=== PATIENT | male | born 1995 | race Caucasian/White ===

== ENCOUNTER 2023-05-03 17:23 | Emergency (ER) | payer SELFPAY ==
[2023-05-03 17:27] VITALS: BP 178/102; PULSE 95; RESP 20; TEMP 36.3; O2SAT 98; BMI 48.7
[2023-05-03] MEDS: FLUORESCEIN SODIUM 1 MG STRIP OP (18:08)
[2023-05-03] MEDS: TETRACAINE HCL 0.5% OP SOL 80 DROP/4 ML BOTTLE OP (18:09)
--- NOTE | 2023-05-03 18:13 | ED_ITS ---
HPI - Eye Problem General Chief complaint: Eye Problems Stated complaint: something in eye Time Seen by Provider: 05/03/23 17:53 Source: patient Mode of arrival: walk-in Limitations: no limitations History of Present Illness HPI Narrative: this patient's here for pain or discomfort in his right eye. His left eye is asymptomatic. He has a lot of tearing in his right eye it's extremely light sensitive and its irritated. He does not have any history that was suggestive foreign body. He said he woke up this past Wednesday morning with it. He went to work today but since getting worse. He does not wear contact lenses. He has no other connective tissue diseases or symptoms such as fever muscle aches and pains joint pain urethral drainage or discharge or lesions in his oral cavity. He actually is quite healthy. His slight runny nose but no upper respirations symptoms. Related Data Home Medications Medication Instructions Recorded Confirmed No Known Home Medications 05/03/23 05/03/23 Allergies Allergy/AdvReac Type Severity Reaction Status Date / Time No Known Drug Allergies Allergy Verified 05/03/23 17:30 Exam Narrative Exam Narrative: vital signs are stable. He is pleasant is here with his . Neck is soft and supple. Craniofacial structures show substantial clear lacrimation from his right eye than left eye is normal. His conjunctiva and sclera is definitely injected on the right eye. Gross inspection does not show any foreign bodies. Slit lamp examination was done after tetracaine drops. It should be noted that the tetracaine drops relieved all of his discomfort. Fluorescein staining was then done and at the 5 o'clock position there is two small areas of uptake of fluorescein stain consistent with small abrasions. He does have some perilimbal injection of vessels. Constitutional Vital Signs, click to edit/add: Last Vital Signs Temp 97.4 F L 05/03/23 17:27 Pulse 95 H 05/03/23 17:27 Resp 20 05/03/23 17:27 BP 178/102 H 05/03/23 17:27 Pulse Ox 98 05/03/23 17:27 O2 Del Method Room Air 05/03/23 17:27 Course Vital Signs Vital signs: Vital Signs Temperature 97.4 F L 05/03/23 17:27 Pulse Rate 95 H 05/03/23 17:27 Respiratory Rate 20 05/03/23 17:27 Blood Pressure 178/102 H 05/03/23 17:27 Pulse Oximetry 98 05/03/23 17:27 Oxygen Delivery Method Room Air 05/03/23 17:27 Temperature 97.4 F L 05/03/23 17:27 Pulse Rate 95 H 05/03/23 17:27 Respiratory Rate 20 05/03/23 17:27 Blood Pressure 178/102 H 05/03/23 17:27 Pulse Oximetry 98 05/03/23 17:27 Oxygen Delivery Method Room Air 05/03/23 17:27 MDM - Eye Problem MDM Narrative Medical decision making narrative: patient presents with small corneal abrasions last Wednesday morning. No evidence of foreign body. Pain relief was good with tetracaine drops. We'll place him on Voltaren and a pupillary dilator. If he doesn't have complete improvement of symptoms on to follow-up with Dr. Morin vice principal here in [facility]. He is to avoid bright lights TV and reading. She apply cold compresses to the area. Discharge Plan Discharge Chief Complaint: Eye Problems Clinical Impression: Acute iritis, Corneal abrasion Patient Disposition: Home, Self-Care Time of Disposition Decision: 18:16 Prescriptions / Home Meds: No Action No Known Home Medications Additional Instructions: Voltaren drops Stand Alone Forms: Portal Instructions Referrals: Physician,Non-Staff, MD [Primary Care Provider] - 1 week
[2023-05-03] MEDS: ATROPINE SULFATE OP (18:36)
[2023-05-03 18:38] VITALS: BP 160/90
== END 2023-05-03 18:40 | disposition home or self-care (01) ==
PROVIDERS: Emergency Provider Emergency Medicine Emergency Medical Services
DX: H20.00 Unspecified acute and subacute iridocyclitis (principal); S05.01XA Injury of conjunctiva and corneal abrasion without foreign body, right eye, 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; X58.XXXA Exposure to other specified factors, 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
CPT/HCPCS: 99283

== ENCOUNTER 2023-10-12 02:14 | Emergency (ER) | payer SELFPAY ==
[2023-10-12 02:21] VITALS: BP 168/99; PULSE 90; RESP 16; TEMP 36.5; O2SAT 95; BMI 42.6
--- NOTE | 2023-10-12 02:38 | ED.GIBLEED1 ---
HPI - GI Bleed General Chief complaint: GI Bleed Stated complaint: constipation rectal bleeding Time Seen by Provider: 10/12/23 02:34 Source: patient Mode of arrival: walk-in Limitations: no limitations History of Present Illness HPI Narrative: constipation. left BM 2 days ago. was straining tonight and passed some blood. No abdominal pain or nausea. no known hemorrhoids Related Data Home Medications ?Medication ?Instructions ?Recorded ?Confirmed omeprazole magnesium 2.5 mg oral 10 mg PO DAILY 10/12/23 10/12/23 suspension,delayed release (Prilosec) Allergies Allergy/AdvReac Type Severity Reaction Status Date / Time No Known Drug Allergies Allergy Verified 10/12/23 02:24 Review of Systems ROS Status of ROS 10 or more systems reviewed and unremarkable except as noted in history and below Exam Constitutional Vital Signs, click to edit/add: Last Vital Signs Temp 97.7 F 10/12/23 02:21 Pulse 90 10/12/23 02:21 Resp 16 10/12/23 02:21 BP 168/99 H 10/12/23 02:21 Pulse Ox 95 10/12/23 02:21 O2 Del Method Room Air 10/12/23 02:21 Common normals: no apparent distress, average body habitus, oriented x3, no limitations, healthy appearing, alert and well nourished [facility] Common normals: normocephalic and head/scalp atraumatic Respiratory Common normals: normal respiratory effort, no retractions, no use of accessory muscles and clear to auscultation bilaterally Cardio Common normals: regular rate, regular rhythm, S1 normal heart sound and S2 normal heart sound GI Common normals: Normal to inspection, nondistended, normoactive bowel sounds present and soft to palpation Other: rectal . no hemorrhoids. digital exam with soreness of anal verge but no swelling. stool noted at tip of finger. Extremity Common normals: normal to inspection and full ROM Neuro Common normals: oriented x3, CN's II-XII intact bilaterally, moves all extremities and no focal motor deficits Psych Appearance: grossly normal Course Vital Signs Vital signs: Vital Signs Temperature 97.7 F 10/12/23 02:21 Pulse Rate 90 10/12/23 02:21 Respiratory Rate 16 10/12/23 02:21 Blood Pressure 168/99 H 10/12/23 02:21 Pulse Oximetry 95 03/26/24 02:21 Oxygen Delivery Method Room Air 10/12/23 02:21 Temperature 97.7 F 10/12/23 02:21 Pulse Rate 90 10/12/23 02:21 Respiratory Rate 16 10/12/23 02:21 Blood Pressure 168/99 H 10/12/23 02:21 Pulse Oximetry 95 10/12/23 02:21 Oxygen Delivery Method Room Air 10/12/23 02:21 MDM - GI Bleed MDM Narrative Medical decision making narrative: patient with constipation. bleeding with straining. CBC normal . successful enema. discharged home and advised to use daily stool softner or fiber Lab Data Labs: Lab Results 10/12/23 Range/Units 02:50 WBC 6.4 (4.0-11.0) 10^3/uL RBC 5.07 (4.70-6.10) 10^6/uL Hgb 14.3 (14.0-18.0) g/dL Hct 43.2 (42.0-54.0) % MCV 85.2 (80.0-94.0) fL MCH 28.2 (25.9-34.0) pg MCHC 33.1 (29.9-35.2) g/dL RDW 13.4 (11.0-15.0) % Plt Count 232 (150-450) 10^3/uL MPV 11.4 (9.5-13.5) fL Neut % (Auto) 54.3 (43.0-75.0) % Lymph % (Auto) 34.0 (20.5-60.0) % Ogle % (Auto) 8.8 (1.7-12.0) % Eos % (Auto) 1.7 (0.9-7.0) % Baso % (Auto) 0.6 (0.2-2.0) % Neut # (Auto) 3.5 (1.4-6.5) 10^3/uL Lymph # (Auto) 2.2 (1.2-3.8) 10^3/uL Ogle # (Auto) 0.6 (0.3-0.8) 10^3/uL Eos # (Auto) 0.1 (0.0-0.7) 10^3/uL Baso # (Auto) 0.0 (0.0-0.1) 10^3/uL Abs Immat Gran (auto) 0.04 H (0.00-0.03) 10^3/uL Imm/Tot Granulo (auto) 0.6 H (0.0-0.5) % Sodium 128 L (136-145) mmol/L Potassium 3.6 (3.5-5.1) mmol/L Chloride 92 L (98-107) mmol/L Carbon Dioxide 19.5 L (21.0-32.0) mmol/L Anion Gap 20.1 BUN 15.0 (7.0-18.0) mg/dL Creatinine 0.80 (0.70-1.30) mg/dL Est GFR ( Amer) >60 (>=60) Est GFR (Non-Af Amer) >60 (>=60) BUN/Creatinine Ratio 18.8 Glucose 407 H (74-106) mg/dL Calcium 8.0 L (8.5-10.1) mg/dL Imaging Data Chest x-ray: Radiologist's impression: ITS Impressions Abdomen X-Ray 10/12/23 02:39 IMPRESSION: Normal bowel gas pattern with nonspecific colonic stool retention. Correlate for constipation. Electronically authenticated by: NIKOLAI WELCH Date: 10/12/2023 03:45 Discharge Plan Discharge Stand Alone Forms: Portal Instructions Chief Complaint: GI Bleed Clinical Impression: Rectal bleed, Constipation Patient Disposition: Home, Self-Care Prescriptions / Home Meds: No Action Prilosec 2.5 mg susp,delayed release for recon 10 mg PO DAILY Print Language: Danish Instructions: Constipation (ED), Rectal Bleeding (ED) Referrals: Physician,Non-Staff, MD [Primary Care Provider] - 1 week
--- NOTE | 2023-10-12 02:39 | XR_ITS ---
The [address] [address] Patient Name: FRED BAZZI MRN: [id number] date: 1995 Sex: M Assigned Patient Location: ER Current Patient Location: ER Accession/Order Number: [id number] Exam Date: 10/12/2023 02:57 Report Date: 10/12/2023 03:45 At the request of: ERLINDA POWER Procedure: XR abdomen min 2V EXAM: XR abdomen min 2V HISTORY: constipation COMPARISON: None. TECHNIQUE: Multiple supine radiographs of abdomen and pelvis. 4 films. FINDINGS: Included lung bases are clear. No organomegaly. No opaque calculi in the abdomen or pelvis. Normal bowel gas pattern with air and stool scattered throughout large bowel from cecum to rectosigmoid. [id number] stool retention. No distended small bowel loops. Normal renal and psoas shadows. Normal osseous structures and joints. XR/XR abdomen min 2V IMPRESSION: Normal bowel gas pattern with nonspecific colonic stool retention. Correlate for constipation. Electronically authenticated by: NIKOLAI WELCH Date: 10/12/2023 03:45
[2023-10-12 02:55] LABS: Basophils Percent Auto 0.6 % (0.2-2.0); Eosinophils Absolute Auto 0.1 10^3/uL (0.0-0.7); Eosinophils Percent Auto 1.7 % (0.9-7.0); Hematocrit 43.2 % (42.0-54.0); Hemoglobin 14.3 g/dL (14.0-18.0); Immature Granulocytes Abs Auto 0.04 10^3/uL (0.00-0.03); Immature Granulocytes Pct Auto 0.6 % (0.0-0.5); Lymphocytes Absolute Auto 2.2 10^3/uL (1.2-3.8); Mean Corpuscular HGB Conc 33.1 g/dL (29.9-35.2); Mean Corpuscular Hemoglobin 28.2 pg (25.9-34.0); Mean Corpuscular Volume 85.2 fL (80.0-94.0); Mean Platelet Volume 11.4 fL (9.5-13.5); Monocytes Absolute Auto 0.6 10^3/uL (0.3-0.8); Monocytes Percent Auto 8.8 % (1.7-12.0); Neutrophils Absolute Auto 3.5 10^3/uL (1.4-6.5); Neutrophils Percent Auto 54.3 % (43.0-75.0); Platelet Count 232 10^3/uL (150-450); Red Blood Count 5.07 10^6/uL (4.70-6.10); Red Cell Distribution Width 13.4 % (11.0-15.0); White Blood Count 6.4 10^3/uL (4.0-11.0)
[2023-10-12 03:22] LABS: Anion Gap 20.1; BUN Creatinine Ratio 18.8; Carbon Dioxide 19.5 mmol/L (21.0-32.0); Chloride 92 mmol/L (98-107); Estimated GFR (African America >60 (>=60); Estimated GFR (Non-African Ame >60 (>=60); Glucose 407 mg/dL (74-106); Potassium 3.6 mmol/L (3.5-5.1); Sodium 128 mmol/L (136-145)
[2023-10-12] MEDS: LIDOCAINE 2% JELLY 10 ML UR (03:44)
[2023-10-12 04:10] VITALS: BP 132/82; PULSE 80; RESP 18; O2SAT 99
== END 2023-10-12 04:10 | disposition home or self-care (01) ==
PROVIDERS: Emergency Provider Internal Medicine
DX: K62.5 Hemorrhage of anus and rectum (principal); K59.00 Constipation, unspecified; Z79.899 Other long term (current) drug therapy
CPT/HCPCS: 36415; 74019; 80048; 85025; 99284

== ENCOUNTER 2024-04-22 10:38 | Outpatient (OUT) | payer BC, SELFPAY ==
[2024-04-22 11:26] LABS: Basophils Percent Auto 0.4 % (0.2-2.0); Eosinophils Absolute Auto 0.1 10^3/uL (0.0-0.7); Eosinophils Percent Auto 1.2 % (0.9-7.0); Hematocrit 45.4 % (42.0-54.0); Hemoglobin 15.3 g/dL (14.0-18.0); Immature Granulocytes Abs Auto 0.05 10^3/uL (0.00-0.03); Immature Granulocytes Pct Auto 0.6 % (0.0-0.5); Lymphocytes Percent Auto 24.4 % (20.5-60.0); Mean Corpuscular HGB Conc 33.7 g/dL (29.9-35.2); Mean Corpuscular Hemoglobin 29.6 pg (25.9-34.0); Mean Corpuscular Volume 87.8 fL (80.0-94.0); Mean Platelet Volume 11.3 fL (9.5-13.5); Monocytes Absolute Auto 0.6 10^3/uL (0.3-0.8); Monocytes Percent Auto 7.4 % (1.7-12.0); Neutrophils Absolute Auto 5.4 10^3/uL (1.4-6.5); Platelet Count 243 10^3/uL (150-450); Red Blood Count 5.17 10^6/uL (4.70-6.10); Red Cell Distribution Width 12.4 % (11.0-15.0); White Blood Count 8.2 10^3/uL (4.0-11.0)
[2024-04-22 11:44] LABS: Estimated Average Glucose 335 mg/dL; Glycohemoglobin A1C 13.3 % (4.5-6.2)
[2024-04-22 11:54] LABS: Alanine Aminotransferase 30 U/L (16-63); Albumin Globulin Ratio 1.1; Albumin Level 3.8 g/dL (3.4-5.0); Alkaline Phosphatase 116 U/L (46-116); Anion Gap 19.4; Aspartate Amino Transferase 15 U/L (15-37); BUN Creatinine Ratio 12.2; Bilirubin Total 1.2 mg/dL (0.2-1.0); Calcium 9.4 mg/dL (8.5-10.1); Carbon Dioxide 21.4 mmol/L (21.0-32.0); Chloride 96 mmol/L (98-107); Chol HDL Ratio 7.4; Cholesterol 341 mg/dL (<=200); Estimated GFR (African America >60 (>=60 mL/min/1.73m^2); Estimated GFR (Non-African Ame >60 (>=60 mL/min/1.73m^2); Globulin 3.4 g/dL; Glucose 294 mg/dL (74-106); HDL Cholesterol 46 mg/dL (40-60); Potassium 3.8 mmol/L (3.5-5.1); Sodium 133 mmol/L (136-145); Total Protein 7.2 g/dL (6.4-8.2); Triglycerides 464 mg/dL (<=150); VLDL CHOLESTEROL 92.8 mg/dL
[2024-04-22 14:32] LABS: LDL Cholesterol Direct 186 mg/dL
[2024-04-24 12:08] LABS: Insulin 8.2 uIU/mL (2.6-24.9)
== END 2024-04-22 10:39 | disposition home or self-care (01) ==
LOC: LAB 10:40
PROVIDERS: PCP Nurse Practitioner Family; Visit Provider Nurse Practitioner Family
DX: Z00.00 Encounter for general adult medical examination without abnormal findings (principal)
CPT/HCPCS: 36415; 80053; 80061; 83036; 83525; 83721; 84436; 84443; 84481; 85025

== ENCOUNTER 2025-02-25 16:22 | Emergency (ER) | payer BC, SELFPAY ==
--- OUTSIDE RECORDS SUMMARY | 2024-06-12 05:14 | XMS_ITS ---
Author Organization The [facility] in [place] Address [address] [place] [address] Care Team Providers Care Commercial Pilot Name Role Phone Diamond Woods Primary Care Provider [phone] REASON FOR VISIT BP check Encounters Encounter Location Date Provider Diagnosis [facility] [address] [place] [address] 06/12/2024 Diamond Woods Plan Of Treatment No Information Progress Notes * Lavelle BAZZI LDOB:1995 (29 yo M)Acc No.[id number]:06/12/2024 Patient: Althea Lavelle BLANTON :1995 A ge:29 Y S ex:Male Address:[address] [place] [id number] * true * Date: Generated for Kemi nj/Merry/eTransmitting on: 0 02/25/2025 04:27 PM EDT
--- OUTSIDE RECORDS SUMMARY | 2025-01-12 11:15 | XMS_ITS ---
Author Organization The [facility] in [place] Address [address] [place] [address] Care Team Providers Care Tube Splicer Name Role Phone Diamond Woods Primary Care [...] bu t not every day Vital Signs Blood pressure systolic 136 mm Hg 01/13/20 25 Blood pressure diastolic 90 mm Hg 025 Height 68 in 01/12/2025 Weight 275.0 lbs 01/12/2025 BMI 41.81 kg/m2 01/12/2025 Encounters Encounter Location Date Provider Diagnosis [facility] [address] [place] [address] 01/12/2025 Diamondmadai Gonzálesmer Left knee pain M25.5 [...] * Lavelle BAZZI LDOB:1995 (29 yo M)Acc No.[id number]:01/12/2025 Progress Note Patient: Lavelle HOFFMAN Provider: Thang Woods ([facility]), POSTING MACHINE OPERATOR :1995 A ge:29 Y S ex:Male Date:01/12/2025 Address:[address] [place], [place] [id number] Check In:02:50 PM ESTCheck O ut:03:26 PM [...] labs ordered * Preventive Medicine: Screenings/Counseling: B [place] ACTION PLAN Above Normal BMI Follow-up D ietary management education, guidance, and counseling T OBACCO ACTION PLAN Patient counselled on the dangers of tobacco use and urged to quit. 0 01/12/2025 . * Follow Up: p rn * * Electronically signed by Guillermina Woods NP, SALESPERSON WIGS.POSTING MACHINE [id number] on 01/15/2025 at 11:17 AM EDT Sign off status: Completed Visit Status: C HK (Check Out) true * Provider: Thang Woods ([facility]), POSTING MACHINE OPERATOR Date: 0 01/12/2025 Generated for Sergio mauro/Merry/eTransmitting on: 0 02/25/2025 04:27 PM EDT History and Physical Notes * HPI [...]
[2025-02-25 16:27] VITALS: BP 155/102; PULSE 87; TEMP 36.5; O2SAT 96; BMI 41.1
--- OUTSIDE RECORDS SUMMARY | 2025-02-25 16:27 | XMS_ITS | Patient Health Record ---
Author Organization The [facility] [place] Address [address] [place] [address] Care Team Providers Care Project Coach Name Role Phone Diamond Woods Primary Care Provider Allergies No Known Allergies Results Component Value Reference Range Notes GLUCOSE - IN OFFICE (Not yet reviewed by provider) Interpretation: Performing Lab: Notes/Report: Glucose 560 74 - 106 MG/DL INSULIN Reviewed date:04/28/2024 01:58:13 PM Interpretation: Performing Lab: Notes/Report: [facility] , Insulin 8.2 2.6-24.9 uIU/mL Performed at: - [facility] [place] [employer] Worker: Ortiz Shankar PhD, Phone: [phone] [address] [place], [place] [id number] Performing Lab: see note - [facility] LB DIRECT LDL Reviewed date:04/24/2024 09:39:46 AM Interpretation: Performing Lab: Notes/Report: [facility] , LDL Cholesterol Direct 186 100-129 mg/dl NEAR OR ABOVE OPTIMAL <100 mg/dl OPTIMAL 160-189 mg/dl HIGH 130-159 mg/dl BORDERLINE HIGH >190 mg/dl VERY HIGH Performing Lab: see note - [facility] LB CBC AUTO DIFF Reviewed date:04/24/2024 09:39:46 AM Interpretation: Performing Lab: Notes/Report: [facility] , White Blood Count 8.2 4.0-11.0 10 3/uL Red Blood Count 5.17 4.70-6.10 10 6/uL Hemoglobin 15.3 14.0-18.0 g/dL Hematocrit 45.4 42.0-54.0 % Mean Corpuscular Volume 87.8 80.0-94.0 fL Mean Corpuscular Hemoglobin 29.6 25.9-34.0 pg Mean Corpuscular HGB Conc 33.7 29.9-35.2 g/dL Red Cell Distribution Width 12.4 11.0-15.0 % Platelet Count 243 150-450 10 3/uL Mean Platelet Volume 11.3 9.5-13.5 fL Neutrophils Percent Auto 66.0 43.0-75.0 % Lymphocytes Percent Auto 24.4 20.5-60.0 % Monocytes Percent Auto 7.4 1.7-12.0 % Eosinophils Percent Auto 1.2 0.9-7.0 % Basophils Percent Auto 0.4 0.2-2.0 % Immature Granulocytes Pct Auto 0.6 0.0-0.5 % Neutrophils Absolute Auto 5.4 1.4-6.5 10 3/uL Lymphocytes Absolute Auto 2.0 1.2-3.8 10 3/uL Monocytes Absolute Auto 0.6 0.3-0.8 10 3/uL Eosinophils Absolute Auto 0.1 0.0-0.7 10 3/uL Basophils Absolute Auto 0.0 0.0-0.1 10 3/uL Immature Granulocytes Abs Auto 0.05 0.00-0.03 10 3/uL Performing Lab: see note ML - [facility] LB TSH Reviewed date:04/24/2024 09:39:46 AM Interpretation: Performing Lab: Notes/Report: [facility] , Thyroid Stimulating Hormone 1.460 0.358-3.740 u IU/mL Performing Lab: see note ML - [facility] LB T4 Reviewed date:04/24/2024 09:39:46 AM Interpretation: Performing Lab: Notes/Report: [facility] , T4 Thyroxine 9.30 4.50-12.10 ug/dL Performing Lab: see note ML - [facility] LB PROF 14(COMP METB) Reviewed date:04/24/2024 09:39:46 AM Interpretation: Performing Lab: Notes/Report: [facility] , Sodium 133 136-145 mmol/L Potassium 3.8 3.5-5.1 mmol/L Chloride 96 98-107 mmol/L Carbon Dioxide 21.4 21.0-32.0 mmol/L Anion Gap 19.4 Glucose 294 74-106 mg/dL Blood Urea Nitrogen 9.0 7.0-18.0 mg/dL Creatinine 0.74 0.70-1.30 mg/dL Estimated GFR ( Patrica >60 >=60 mL/min/1.73m 2 Estimated GFR (Non- Irma >60 >=60 mL/min/1.73m 2 BUN Creatinine Ratio 12.2 Calcium 9.4 8.5-10.1 mg/dL Bilirubin Total 1.2 0.2-1.0 mg/dL Aspartate Amino Transferase 15 15-37 U/L Alanine Aminotransferase 30 16-63 U/L Alkaline Phosphatase 116 46-116 U/L Total Protein 7.2 6.4-8.2 g/dL Albumin Level 3.8 3.4-5.0 g/dL Globulin 3.4 Albumin Globulin Ratio 1.1 Performing Lab: see note ML - [facility] LIPID PROFILE Reviewed date:04/24/2024 09:39:46 AM Interpretation: Performing Lab: Notes/Report: [facility] , Triglycerides 464 <=150 mg/dL Cholesterol 341 <=200 mg/dL HDL Cholesterol 46 40-60 mg/dL <40 mg/dl - HIGH CARDIOVASCULAR RISK > or =60 mg/dl - LOW CARDIOVASCULAR RISK VLDL CHOLESTEROL 92.8 Chol HDL Ratio 7.4 7.1 - 11.0 MODERATE RISK >11.0 HIGH RISK 4.4 - 7.1 AVERAGE RISK 3.3 - 4.4 LOW RISK Performing Lab: see note ML - [facility] GLYCOHEMOGLOBIN A1C Reviewed date:04/24/2024 09:39:46 AM Interpretation: Performing Lab: Notes/Report: [facility] , Glycohemoglobin A1C 13.3 4.5-6.2 % ADA RECOMMENDED LIMIT 4.0 - 6.0 > 7.0 ADA THERAPEUTIC TARGET < 7.0 ACTION SUGGESTED Estimated Average Glucose 335 Performing Lab: see note ML - [facility] FREE T3 Reviewed date:04/24/2024 09:39:46 AM Interpretation: Performing Lab: Notes/Report: [facility] , Free T3 2.80 2.18-3.98 pg/mL Performing Lab: see note ML - [facility] Reason For Referral No Information Medications Medication SIG (Take, Route, Frequency, Duration) Notes Start Date End Date Status metFORMIN HCl 500 MG 1 tablet with a destiny l Orally BID for 30 days 04/20/2024 Active Diclofenac Sodium 75 MG 1 tablet as need ed Orally Twice a day for 30 days 01/12/2025 Active Omeprazole 20 MG 1 capsule 30 minutes before morning meal Orally Once a day Active Blood Glucose Test Strips Brand Dependent BID for 30 days 04/20/2024 Active Blood Glucose Monitor System w/Device as directed 04/20/2024 Active Lancets - as directed for 100 days 04/20/2024 Active Irbesartan 150 MG 1 tablet Orally Once a day for 30 days 05/26/2024 Active Social History Tobacco Use: Social History Observation Description Date Details (start date - stop date) Current Smoker NA - NA Tobacco Control (Standard) Question Answer Notes Tobacco use: Current smoker How often do you smoke cigarettes? Some days, bu t not every day Problems Problem Type SNOMED Code ICD Code Onset Dates Problem Status W/U Status Risk Notes Problem Hyperlipidemia (79541144) Hyperlipidemia (E78.5) Active confirmed Problem Hypertension (24305755) Hypertension (I10) Active confirmed Problem Excessive thirst (07290074) Excessive thirst (R63.1) Active confirmed Problem Diabetes mellitus (85283848) Diabetes mellitus (E11.9) Active confirmed Vital Signs Blood pressure diastolic 90 mm Hg 01/12/2025 Height 68 in 01/12/2025 Blood pressure systolic 136 mm Hg 01/12/2025 Weight 275.0 lbs 01/12/2025 BMI 41.81 kg/m2 01/12/2025 Encounters Encounter Location Date Provider Diagnosis [facility] [address] [place] [address] 04/20/2024 Diamond Woods Excessive urination at night R35.1 ; Excessive thirst R63.1 ; Diabetes mellitus E11.9 ; Wellness examination Z00.00 and Hypertension I10 [facility] [address] [place] [address] 05/26/2024 Diamond Woods Hypertension I10 and Diabetes mellitus E11.9 [address] [place] [address] 01/12/2025 Diamond Woods Left knee pain M25.5 62 ; Diabetes mellitus E11.9 ; Hyperlipidemia E78.5 ; Hypertension I10 and Wellness examination Z00.00 [facility] [address] [place] [place] [address] 04/24/2024 Diamond oWods Diabetes mellitus E1 1.9 and Hyperlipidemia E78.5 [facility] [address] [place] [address] 04/28/2024 Diamond Woods [facility] [address] [place] [address] 05/05/2024 Diamond Woods [facility] [address] [place] [address] 06/12/2024 Diamond Woods [facility] [address] [place] [address] 07/25/2024 Diamond Woods Assessments Encounter Date Diagnosis (ICD Code) Assessment Notes Treatment Notes Treatment Clinical Notes Section Notes 04/20/2024 Excessive urination at night (ICD-10 - R35.1) 04/20/2024 Excessive thirst (ICD-10 - R63.1) 05/26/2024 Hypertension (ICD-10 - I10) BP check two weeks 05/26/2024 Diabetes mellitus (ICD-10 - E11.9) BS 130-220 at home continue Metformin continue working on diet A1c check 2 months and fu visit 01/12/2025 Left knee pain (ICD-10 - M25.562) 01/12/2025 Diabetes mellitus (ICD-10 - E11.9) continue metformin work on diet 04/24/2024 Diabetes mellitus (ICD-10 - E11.9) 04/24/2024 Hyperlipidemia (ICD-10 - E78.5) 01/12/2025 Hyperlipidemia (ICD-10 - E78.5) 04/20/2024 Diabetes mellitus (ICD-10 - E11.9) refusing ER discussed DKA sx, continue monitor monitor bs, report on Wednesday to ER if feels worse, sx, BS not coming down handouts given diabetic education fu here one month 04/20/2024 Wellness examination (ICD-10 - Z00.00) ROS done exam done 01/12/2025 Hypertension (ICD-10 - I10) work on wt loss did not want to increase med dose at this time 01/12/2025 Wellness examination (ICD-10 - Z00.00) ROS done exam done labs ordered 04/20/2024 Hypertension (ICD-10 - I10) does not want to start med today BP recheck next week has been told high in past Plan Of Treatment Pending Test Test Name Order Date GLUCOSE - IN OFFICE 04/20/2024 CMP (COMPLETE METABOLIC PANEL) 4 HEMOGLOBIN A1C (GLYCO) 01/12/2025 HEMOGLOBIN A1C (GLYCO) 04/20/2024 INSULIN, TOTAL 04/20/2024 LIPID PANEL (CHOL/TRIG/HDL/LDL) 04/20/20 24 LIPID PANEL (CHOL/TRIG/HDL/LDL) 01/13/20 25 CBC WITH DIFF 04/20/2024 GLYCOHEMOGLOBIN A1C 04/24/2024 LIPID PROFILE 04/24/2024 THYROID PANEL (T4/TSH/FREE T3) 4 Insurance Providers Payer Name Payer Address Payer Phone Subscriber Number Group Number Insured Name Patient Relationship to Insured Coverage Start Date Coverage End Date [employer] ACCESS PPO PLUS LOCAL PLAN [address] [place] [address] [phone] [id number] Lavelle Zamora Self - patient is the insured Medical (General) History Medical History History ICD Code History of diagnoses, syndromes and cond itions none Surgical History Surgery Date(Month/Year) History of ear surgery Meniscus Repair, left
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
--- OUTSIDE RECORDS SUMMARY | 2025-02-25 16:28 | XMS_ITS | Clinical Summary ---
Author Organization [facility] Address [address] [place] [address] Care Team Providers Care Mold Stamper Name Role Phone Unavailable Primary Care Provider Unavailabl e Social History Tobacco Use Types Packs/Day Years Used Date Smoking Tobacco: Never Assessed Sex and Gender Information Value Date Recorded Sex Assigned at Not on file Legal Sex Male 10:00 PM EDT Gender Identity Not on file Sexual Orientation Not on file Last Filed Vital Signs Vital Sign Reading Time Taken Comments Blood Pressure - - Pulse - - Temperature - - Respiratory Rate - - Oxygen Saturation - - Inhaled Oxygen Concentration - - Weight 111 kg (245 lb) 01/20/2019 2:49 PM EDT Height 172.7 cm (5' 8 ) 04/19/2019 1:21 PM EDT Body Mass Index 37.25 01/20/2019 2:49 PM EDT Plan of Treatment Not on file
--- NOTE | 2025-02-25 16:39 | ED.EYEPROB1 ---
HPI - Eye Problem General Chief complaint: Eye Problems Stated complaint: eye Time Seen by Provider: 02/25/25 16:37 Source: patient and family Mode of arrival: walk-in Limitations: no limitations History of Present Illness HPI Narrative: Patient presents to the ER with a complaint of eye irritation. He states it is in his right eye. He was power washing his truck the night before he did not get anything in his eye next morning when he woke up he had some irritation and itching and clearish discharge. He states he does not have any light sensitivity he denies any loss feels of vision floaters flashes or change in his vision. He does not wear contacts. He did have a stye earlier he states he popped the area . He has no swelling in the facial area otherwise. No other complaints at this time MD chief complaint: Reports eye redness; Denies eye injury or vision change Onset (ago): day(s) Onset description: Reports gradual Duration: Reports constant Location: Reports right eye Related Data Home Medications ?Medication ?Instructions ?Recorded ?Confirmed omeprazole magnesium 2.5 mg oral 10 mg PO DAILY 10/12/23 02/25/25 suspension,delayed release (Prilosec) irbesartan 150 mg tablet 150 mg PO DAILY 02/25/25 02/25/25 metformin 500 mg tablet 500 mg PO BID 02/25/25 02/25/25 Previous Rx's ?Medication ?Instructions ?Recorded neomycin 1.75 mg-polymyxin 10,000 2 drp ophthalmic (eye) QID 7 days 02/25/25 unit-gramicidin 0.025mg/mL eye #10 mL drops Allergies Allergy/AdvReac Type Severity Reaction Status Date / Time No Known Drug Allergies Allergy Verified 10/12/23 02:24 PFSH PFSH Social History Little interest or pleasure in doing things: not at all Feeling down, depressed, or hopeless: not at all Exam Constitutional Vital Signs, click to edit/add: Last Vital Signs Temp 97.7 F 02/25/25 16:27 Pulse 87 02/25/25 16:27 Resp 16 02/25/25 16:27 BP 155/102 H 02/25/25 16:27 Pulse Ox 96 02/25/25 16:27 O2 Del Method Room Air 02/25/25 16:27 Documenting provider has reviewed patient's vital signs: yes Common normals: no apparent distress, average body habitus, oriented x3, no limitations, healthy appearing, alert and well nourished [facility] Common normals: normocephalic, head/scalp atraumatic, hearing grossly normal bilaterally and external ears normal Face and sinus: normal facial exam Nose: external nose normal Tympanic membrane: TMs normal bilaterally Eye Common normals: PERRL, EOMs intact bilaterally and normal visual gonzalez by confrontation; scleral icterus and papilledema General eye: normal light reflex Visual acuity: acuity normal, visual acuity right eye and visual acuity left eye Visual gonzalez: no peripheral vision loss and no central vision loss Alignment: alignment normal Periorbital: periorbital findings normal Eyelid: eyelids normal Conjunctiva: conjunctiva abnormal right Cornea: corneas normal and fluorescein used Pupil: PERRL and accommodation reflex normal EOM: EOM abnormal Direct Ophthalmoscopy: normal light reflex and anterior chamber normal; no photophobia Slit lamp exam: slit lamp exam performed with fluorescein, lids/lashes/lacrimal system, conjunctiva/sclera Conjunctiva/sclera details: diffuse conjunctiva injection and discharge; no subconjunctival hemorrhage and no chemosis, cornea Cornea details: normal appearing, anterior chamber Anterior chamber details: normal appearing and iris Iris details: pupils round Neck & C-Spine Common normals: full ROM, no lymphadenopathy and supple Respiratory Common normals: normal respiratory effort, no use of accessory muscles and clear to auscultation bilaterally Cardio Common normals: regular rate, regular rhythm, S1 normal heart sound, S2 normal heart sound and no murmurs Neuro Will Coma Scale: document GCS findings Common normals: oriented x3 Sensorium/orientation: awake, alert, oriented to person and oriented to place Psych Common normals: mental status grossly normal, thought process normal, cooperative and affect normal Course Vital Signs Vital signs: Vital Signs Temperature 97.7 F 02/25/25 16:27 Pulse Rate 87 02/25/25 16:27 Respiratory Rate 16 02/25/25 16:27 Blood Pressure 155/102 H 02/25/25 16:27 Pulse Oximetry 96 02/25/25 16:27 Oxygen Delivery Method Room Air 02/25/25 16:27 Temperature 97.7 F 02/25/25 16:27 Pulse Rate 87 02/25/25 16:27 Respiratory Rate 16 02/25/25 16:27 Blood Pressure 155/102 H 02/25/25 16:27 Pulse Oximetry 96 02/25/25 16:27 Oxygen Delivery Method Room Air 02/25/25 16:27 MDM - Eye Problem MDM Narrative Medical decision making narrative: Patient presents to the ER with a complaint of eye irritation. He states it is in his right eye. He was power washing his truck the night before he did not get anything in his eye next morning when he woke up he had some irritation and itching and clearish discharge. He states he does not have any light sensitivity he denies any loss feels of vision floaters flashes or change in his vision. He does not wear contacts. He did have a stye earlier he states he popped the area . He has no swelling in the facial area otherwise. No other complaints at this time Eye was examined with fluorescein stain and a slit lamp. Fluorescein stain did not show any obvious uptake. Pupils equal and reactive good range of motion of his extraocular movements no tenderness in the periorbital area. He does have a lot of clearish drainage. Slit-lamp does not show any foreign body negative Saji sign. Good accommodation of the pupils. No cell or flare. He does have an area that appears may have been a stye. No obvious blockage of the tear duct. No change to his visual acuity. Patient symptoms started the day after he was washing his truck he did not get any substances in his eye and it did not have any foreign body that he recalls. He states he felt fine after he washed his truck. For this reason I doubt foreign body from this incident. Patient does have a conjunctivitis. Already treated with antibiotic eyedrop. He was encouraged to use warm compresses in the area. Slit-lamp evaluation of the left eye is normal. Patient is alert and oriented he will be discharged home in stable condition. He was encouraged to follow-up with his PCP or was eye doctor. He will return with worsening or concerning symptoms as discussed. Differential Diagnosis Differential diagnosis: Likely corneal abrasion, conjunctivitis, acute iritis, hyphema, periorbital cellulitis and corneal ulcer Medical Records Attestation: I reviewed the patient's medical records. Discharge Plan Discharge Chief Complaint: Eye Problems Clinical Impression: Conjunctivitis Patient Disposition: Home, Self-Care Time of Disposition Decision: 17:01 Condition: Good Prescriptions / Home Meds: New ulvbvucj-erlocalok-tgueymukvl 1.75 mg-10,000 unit-0.025mg/mL drops 2 drp ophthalmic (eye) QID 7 Days Qty: 10 0RF No Action Prilosec 2.5 mg susp,delayed release for recon 10 mg PO DAILY irbesartan 150 mg tablet 150 mg PO DAILY metformin 500 mg tablet 500 mg PO BID Print Language: Yakut Instructions: Conjunctivitis (ED) Additional Instructions: With ophthalmology or your eye doctor in 3 to 5 days. Return with any worsening or concerning symptoms including vision loss floaters or flashers or worsening of condition. Referrals: ALETHA KARIMI [Primary Care Provider, Family Practice] - 1 week Discharge Date/Time: 02/25/25 17:27
[2025-02-25] MEDS: TETRACAINE HCL 0.5% OP SOL 80 DROP/4 ML BOTTLE OP (17:22)
[2025-02-25] MEDS: FLUORESCEIN SODIUM 1 MG STRIP OP (17:22)
== END 2025-02-25 17:27 | disposition home or self-care (01) ==
PROVIDERS: Emergency Provider Emergency Medicine; PCP Nurse Practitioner Family
DX: H10.9 Unspecified conjunctivitis (principal)
CPT/HCPCS: 99283

== ENCOUNTER 2025-03-03 10:17 | Outpatient (OUT) | payer BC, SELFPAY ==
--- OUTSIDE RECORDS SUMMARY | 2025-01-12 11:15 | XMS_ITS ---
Author Organization The [facility] in [place] Address [address] [place] [address] Care Team Providers Care Software Recruiter Name Role Phone Diamond Woods Primary Care Provider Allergies No Known Allergies REASON FOR VISIT check up- last time he was here was told is diabetic, didnt get the repeat labs done- will need resent over Medications Medication SIG (Take, Route, Frequency, Duration) Notes Start Date End Date Status metFORMIN HCl 500 MG 1 tablet with a destiny l Orally BID for 30 days 04/20/2024 Active Diclofenac Sodium 75 MG 1 tablet as need ed Orally Twice a day for 30 days 01/12/2025 Active Omeprazole 20 MG 1 capsule 30 minutes before morning meal Orally Once a day Active Lancets - as directed for 100 days 04/20/2024 Active Irbesartan 150 MG 1 tablet Orally Once a day for 30 days 05/26/2024 Active Blood Glucose Test Strips Brand Dependent BID for 30 days 04/20/2024 Active Blood Glucose Monitor System w/Device as directed 04/20/2024 Active Social History Tobacco Use: Social History Observation Description Date Details (start date - stop date) Current Smoker NA - NA Tobacco Control (Standard) Question Answer Notes Tobacco use: Current smoker How often do you smoke cigarettes? Some days, bu t not every day Vital Signs Weight 275.0 lbs 01/12/2025 Height 68 in 01/12/2025 Blood pressure systolic 136 mm Hg 01/13/20 25 Blood pressure diastolic 90 mm Hg 025 BMI 41.81 kg/m2 01/12/2025 Encounters Encounter Location Date Provider Diagnosis [facility] [address] [place] [address] 01/12/2025 Diamondmadai Gonzálesmer Left knee pain M25.5 62 ; Diabetes mellitus E11.9 ; Hyperlipidemia E78.5 ; Hypertension I10 and Wellness examination Z00.00 Assessments Encounter Date Diagnosis (ICD Code) Assessment Notes Treatment Notes Treatment Clinical Notes Section Notes 01/12/2025 Left knee pain (ICD-10 - M25.562) 01/12/2025 Diabetes mellitus (ICD-10 - E11.9) continue metformin work on diet 01/12/2025 Hyperlipidemia (ICD-10 - E78.5) 01/12/2025 Hypertension (ICD-10 - I10) work on wt loss did not want to increase med dose at this time 01/12/2025 Wellness examination (ICD-10 - Z00.00) ROS done exam done labs ordered Plan Of Treatment Medication Medication Name Sig Start Date Stop Date Notes Diclofenac Sodium 75 MG 1 tablet as need ed Orally Twice a day for 30 days 01/12/2025 Treatment Notes Assessment Notes Diabetes mellitus continue metformin work on diet Hypertension work on wt loss did not want to increase med dose at this time Wellness examination ROS done exam done labs ordered Pending Test Test Name Order Date HEMOGLOBIN A1C (GLYCO) 01/12/2025 LIPID PANEL (CHOL/TRIG/HDL/LDL) 01/13/20 25 Next Appt Details Follow Up: prn, Reason: Progress Notes * Lavelle BAZZI LDOB:1995 (29 yo M)Acc No.[id number]:01/12/2025 Progress Note Patient: Lavelle HOFFMAN Provider: Thang Woods ([facility]), BOBBIN WINDER TENDER :1995 A ge:29 Y S ex:Male Date:01/12/2025 Address:[address] [place], [place] [id number] Check In:02:50 PM ESTCheck O ut:03:26 PM EST Subjective: * Chief Complaints: * 1 . Check up- last time he was here was told is diabetic. 2. Didnt get the repeat labs done- will need resent over. * HPI: G eneral: labs BH left knee pain on and off for last few months aleve helps some no new injury Diclofenac. * ROS: G eneral/Constitutional: Patient complaining of w t gain. F ever d enies.?Headache d enies. W eight loss d enies. O phthalmologic: Discharge d enies. E ye Pain d enies. I tching and redness d enies. E NT: Nasal discharge d enies. N darinel congestion d enies.?Sore throat d enies. C ardiovascular: Chest tightness/ heavy pressure d enies. R apid heart rate d enies. S welling of extremities d enies. C hest pain d enies. ? R espiratory: Productive cough d enies. C hest pain d enies. C ough d enies. S hortness of breath d enies. W heezing d enies. ? G astrointestinal: Abdominal pain d enies. C onstipation d enies. D ecreased appetite d enies. D iarrhea d enies. N ausea d enies. V omiting?denies. G enitourinary: Urinary incontinence d enies. P ainful urination d enies. M usculoskeletal: Patient complaining of l eft knee pain. B ack pain d enies. N radha pain d enies. M uscle aches d enies. S kin: Rash d enies. S kin lesion(s) d enies. ? * Active Problem List R63.1 Excessive thirst Modified On:04/20/2024/U Status:confirmed E11.9 Diabetes mellitus Modified On:04/20/2024U Status:confirmed I10 Hypertension Modified On:04/21/2024/U Status:confirmed E78.5 Hyperlipidemia Modified On:04/24/2024/U Status:confirmed * Medical History: H istory of diagnoses, syndromes and conditions none. * Surgical History: H istory of ear surgery , Meniscus Repair, left . * Hospitalization/Major Diagno stic Procedure: D enies Past Hospitalization. * Family History: F ather: alive. M other: alive, diagnosed with Unspecified essential hypertension. B rother(s): alive. M igrated Family History:: Family history of hyperlipoproteinemia;Family history of hypertension;Family history of arthritis;. P aternal Grandfather: diagnosed with Diabetes mellitus without mention of complication, type II or unspecified type, not stated as uncontrolled.?2 brother(s) , 1 sister(s) . . * Social History: T obacco Use: T obacco Control (Standard) T obacco use: C urrent smoker H ow often do you smoke cigarettes? S ome days, but not every day * Medications: T aking Blood Glucose Monitor System w/Device Kit as directed , Taking Blood Glucose Test Strips Brand Dependent As Ordered BID , Taking Irbesartan 150 MG Tablet 1 tablet Orally Once a day , Taking Lancets - Miscellaneous as directed , Taking metFORMIN HCl 500 MG Tablet 1 tablet with a meal Orally BID , Taking Omeprazole 20 MG Capsule Delayed Release 1 capsule 30 minutes before morning meal Orally Once a day , Medication List reviewed and reconciled with the patient * Allergies: N .K.D.A. Objective: * Vitals: W t:275.0lbs, Ht: 68 in, BP:136/90mm Hg, BMI:41.81Index, Ht-cm: 172.72 cm, Wt-k.74 kg. * Examination: G eneral Examinations: GENERAL APPEARANCE: a lert and oriented, in no acute distress, obese. EYES: c onjunctiva normal, sclera non-icteric. NOSE: n ormal external appearance. LUNGS: c lear to auscultation bilaterally. CARDIO: r egular rate and rhythm, S1, S2 normal. ABDOMEN: s oft, nontender. MUSCULOSKELETAL: G ait and station normal. SKIN: w arm and dry. Assessment: * Assessment: 1. L eft knee pain - M25.562 (Primary) 2 . D iabetes mellitus - E11.9 ? 3 . H yperlipidemia - E78.5 4 . H ypertension - I10 ?5. W ellness examination - Z00.00 Plan: * Treatment: 2. D iabetes mellitus L AB: HEMOGLOBIN A1C (GLYCO) Notes: continue metformin work on diet 3. H yperlipidemia L AB: LIPID PANEL (CHOL/TRIG/HDL/LDL) 4. H ypertension Notes: work on wt loss did not want to increase med dose at this time 5. W ellness examination Notes: ROS done exam done labs ordered * Preventive Medicine: Screenings/Counseling: B [place] ACTION PLAN Above Normal BMI Follow-up D ietary management education, guidance, and counseling T OBACCO ACTION PLAN Patient counselled on the dangers of tobacco use and urged to quit. 0 01/12/2025 . * Follow Up: p rn * * Electronically signed by Guillermina Woods NP, VIRTUALIZATION ENGINEER.BOBBIN WINDER TENDER.[id number] on 01/15/2025 at 11:17 AM EDT Sign off status: Completed Visit Status: C HK (Check Out) true * Provider: Thang Woods ([facility]), BOBBIN WINDER TENDER Date: 0 01/12/2025 Generated for Sergio mauro/Merry/eTransmitting on: 0 03/03/2025 10:21 AM EDT History and Physical Notes * HPI (History of Present Illness) Category Sub-Category Detail Notes Category Not es General labs BH left knee pain on and off for last few months aleve helps some no new injury Diclofenac Examination Category Sub-Category Detail Notes Category Not es General Examinations GENERAL APPEARANCE: alert a nd oriented, in no acute distress, obese EYES: conjunctiva normal, sclera non-icteric EARS: NOSE: normal external appe arance THROAT: CARDIO: regular rate and rhy thm, S1, S2 normal LUNGS: clear to auscultatio n bilaterally ABDOMEN: soft, nontender SKIN: warm and dry BACK: MUSCULOSKELETAL: Gait and station nor mal LYMPH NODES:
--- OUTSIDE RECORDS SUMMARY | 2025-02-26 05:37 | XMS_ITS ---
Author Organization [facility] in [place] Address [address] [place] [address] Care Team Providers Care Research Project Manager Name Role Phone Diamond Woods Primary Care Provider [phone] REASON FOR VISIT [facility] ER Medications Medication SIG (Take, Route, Frequency, Duration) Notes Start Date End Date Status Omeprazole 20 MG 1 capsule 30 minutes before morning meal Orally Once a day Unknown metFORMIN HCl 500 MG 1 tablet with a destiny l Orally BID for 30 days 04/20/2024 Unknown Lancets - as directed for 100 days 04/20/2024 Unknown Irbesartan 150 MG 1 tablet Orally Once a day for 30 days 05/26/2024 Unknown Phjuybiv-Ocpdinanc-Ekcbtok h 0.1 % 1 drop into affected eye Ophthalmic Four times a day for 5 days 02/27/2025 Active Diclofenac Sodium 75 MG 1 tablet as need ed Orally Twice a day for 30 days 01/12/2025 Unknown Blood Glucose Test Strips Brand Dependent BID for 30 days 04/20/2024 Unknown Blood Glucose Monitor System w/Device as directed 04/20/2024 Unknown Encounters Encounter Location Date Provider Diagnosis [facility] [address] [place] [address] 02/26/2025 Diamond Woods Plan Of Treatment Medication Medication Name Sig Start Date Stop Date Notes Bwwkfdti-Xihhzzskh-Pjmdmwvt 0.1 % 1 drop into affected eye Ophthalmic Four times a day for 5 days 02/27/2025 Progress Notes * Lavelle BAZZI LDOB:1995 (30 yo M)Acc No.[id number]:02/26/2025 Patient: Althea Lavelle BLANTON :1995 A ge:30 Y S ex:Male Address:[address] [place] [address], [facility] * Refills Start Nqjuvonv-Lojfwqnlg-Xlhbecxv Suspension, 0.1 %, Ophthalmic, 1 ML, 1 drop into affected eye, Four times a day, 5 days, Refills=0 Subjective: * Chief Complaints: * t ER * Medical History: * Surgical History: * Hospitalization/Major Diagno stic Procedure: * Medications: U nknownBlood Glucose Monitor System w/Device Kit as directed Blood Glucose Test Strips Brand Dependent As Ordered BID Diclofenac Sodium 75 MG Tablet Delayed Release 1 tablet as needed Orally Twice a day Irbesartan 150 MG Tablet 1 tablet Orally Once a day Lancets - Miscellaneous as directed metFORMIN HCl 500 MG Tablet 1 tablet with a meal Orally BID Omeprazole 20 MG Capsule Delayed Release 1 capsule 30 minutes before morning meal Orally Once a day Unknown Blood Glucose Monitor System w/Device Kit as directed Unknown Blood Glucose Test Strips Brand Dependent As Ordered BID Unknown Diclofenac Sodium 75 MG Tablet Delayed Release 1 tablet as needed Orally Twice a day Unknown Irbesartan 150 MG Tablet 1 tablet Orally Once a day Unknown Lancets - Miscellaneous as directed Unknown metFORMIN HCl 500 MG Tablet 1 tablet with a meal Orally BID Unknown Omeprazole 20 MG Capsule Delayed Release 1 capsule 30 minutes before morning meal Orally Once a day Objective: * Vitals: * Physical Examination: Assessment: Plan: * Treatment: * Procedure Codes: * true * Date: Generated for Sergio mauro/Merry/Chinmay on: 0 03/03/2025 10:21 AM EDT
--- OUTSIDE RECORDS SUMMARY | 2025-03-03 10:21 | XMS_ITS | Patient Health Record ---
Author Organization [facility] in [place] Address [address] [place] [address] Care Team Providers Care Fittings Tightener Name Role Phone Diamond Woods Primary Care Provider Allergies No Known Allergies Results Component Value Reference Range Notes GLUCOSE - IN OFFICE (Not yet reviewed by provider) Interpretation: Performing Lab: Notes/Report: Glucose 560 74 - 106 MG/DL CBC AUTO DIFF Reviewed date:04/24/2024 09:39:46 AM Interpretation: Performing Lab: Notes/Report: [facility] , White Blood Count 8.2 4.0-11.0 10 [...] 3/uL Performing Lab: see note ML - [facility] LB DIRECT LDL Reviewed date:04/24/2024 09:39:46 AM Interpretation: Performing Lab: Notes/Report: [facility] , LDL Cholesterol Direct 186 100-129 mg/dl NEAR OR ABOVE OPTIMAL <100 mg/dl OPTIMAL 160-189 mg/dl HIGH 130-159 mg/dl BORDERLINE HIGH >190 mg/dl VERY HIGH Performing Lab: see note ML - [facility] LB TSH Reviewed date:04/24/2024 09:39:46 AM Interpretation: Performing Lab: Notes/Report: [facility] , Thyroid Stimulating Hormone 1.460 0.358-3.740 u IU/mL Performing Lab: see note ML - [facility] LB T4 Reviewed date:04/24/2024 09:39:46 AM Interpretation: Performing Lab: Notes/Report: [facility] , T4 Thyroxine 9.30 4.50-12.10 ug/dL Performing Lab: see note - [facility] LB PROF 14(COMP METB) Reviewed date:04/24/2024 09:39:46 AM Interpretation: Performing Lab: Notes/Report: [facility] , Sodium 133 136-145 mmol/L Potassium 3.8 [...] Globulin Ratio 1.1 Performing Lab: see note - [facility] LIPID PROFILE Reviewed date:04/24/2024 09:39:46 AM Interpretation: Performing Lab: Notes/Report: [facility] , Triglycerides 464 <=150 mg/dL Cholesterol 341 <=200 mg/dL HDL Cholesterol 46 40-60 mg/dL <40 mg/dl - HIGH CARDIOVASCULAR RISK > or =60 mg/dl - LOW CARDIOVASCULAR RISK VLDL CHOLESTEROL 92.8 Chol HDL Ratio 7.4 7.1 - 11.0 MODERATE RISK >11.0 HIGH RISK 4.4 - 7.1 AVERAGE RISK 3.3 - 4.4 LOW RISK Performing Lab: see note - [facility] INSULIN Reviewed date:04/28/2024 01:58:13 PM Interpretation: Performing Lab: Notes/Report: [facility] , Insulin 8.2 2.6-24.9 uIU/mL Performed at: - [facility] Installer: Ortiz Shankar PhD, Phone: [phone] [address] [place], [place] [id number] Performing Lab: see note - [facility] GLYCOHEMOGLOBIN A1C Reviewed date:04/24/2024 09:39:46 AM Interpretation: Performing Lab: Notes/Report: [facility] , Glycohemoglobin A1C 13.3 4.5-6.2 % ADA RECOMMENDED LIMIT 4.0 - 6.0 > 7.0 ADA THERAPEUTIC TARGET < 7.0 ACTION SUGGESTED Estimated Average Glucose 335 Performing Lab: see note - [facility] FREE T3 Reviewed date:04/24/2024 09:39:46 AM Interpretation: Performing Lab: Notes/Report: [facility] , Free T3 2.80 2.18-3.98 pg/mL Performing Lab: see note - [facility] Reason For Referral No Information [...] a day for 30 days 05/26/2024 Unknown Diclofenac Sodium 75 MG 1 tablet as need ed Orally Twice a day for 30 days 01/12/2025 Unknown Blood Glucose Test Strips Brand Dependent BID for 30 days 04/20/2024 Unknown Blood Glucose Monitor System w/Device as directed 04/20/2024 Unknown Edlakree-Upcwmpfvl-Tmqzhat h 0.1 % 1 drop into affected eye Ophthalmic Four times a day for 5 days 02/27/2025 Active Social History Tobacco Use: Social History Observation Description Date Details (start date - stop date) Current Smoker NA - NA Tobacco Control (Standard) Question Answer Notes Tobacco use: Current smoker How often do you smoke cigarettes? Some days, bu t not every day AUDIT-C (Standard) Question Answer Notes Did you have a drink contain ing alcohol in the past year? Yes How often did you have six o r more drinks on one occasion in the past year? 4 or more times a week (4 points) How many drinks did you have on a typical day when you were drinking in the past year? 10 or more drinks (4 points) How often did you have a dri nk containing alcohol in the past year? 2 to 4 times a month (2 points) Points 10 Interpretation Positive Problems Problem Type SNOMED Code ICD Code Onset Dates Problem Status W/U Status Risk Notes Problem Hyperlipidemia (37963539) Hyperlipidemia (E78.5) Active confirmed Problem Hypertension (52385910) Hypertension (I10) Active confirmed Problem Excessive thirst (19398798) Excessive thirst (R63.1) Active confirmed Problem Diabetes mellitus (73871855) Diabetes mellitus (E11.9) Active confirmed Vital Signs Blood pressure diastolic 90 mm Hg 01/12/2025 Height 68 in 01/12/2025 Blood pressure systolic 136 mm Hg 01/12/2025 Weight 275.0 lbs 01/12/2025 BMI 41.81 kg/m2 01/12/2025 Encounters Encounter Location Date Provider Diagnosis [facility] [address] [place] [address] 04/20/2024 Diamond Woods Excessive urination at night R35.1 ; Excessive thirst R63.1 ; Diabetes mellitus E11.9 ; Wellness examination Z00.00 and Hypertension I10 [address] [place] [address] 05/26/2024 Diamond Woods Hypertension I10 and Diabetes mellitus E11.9 [facility] [address] [place] [address] 01/12/2025 Diamond Woods Left knee pain M25.5 62 ; Diabetes mellitus E11.9 ; Hyperlipidemia E78.5 ; Hypertension I10 and Wellness examination Z00.00 [facility] [address] [place] [address] 04/24/2024 Diamond Woods Diabetes mellitus E1 1.9 and Hyperlipidemia E78.5 [address] [place] [address] 04/28/2024 Diamond Woods [address] [place] [address] 05/05/2024 Diamond Woods [facility] [address] [place] [address] 06/12/2024 Diamond Woods [address] [address] 07/25/2024 Diamond Woods [facility] [address] [place] [address] 02/26/2025 Diamond Woods Assessments Encounter Date Diagnosis (ICD [...] ACCESS PPO PLUS LOCAL PLAN [address] [place] [address] [id number] Lavelle Zamora Self - patient is the insured Medical (General) History Medical History History ICD Code History of diagnoses, syndromes and cond itions none Surgical History Surgery Date(Month/Year) Meniscus Repair, left History of ear surgery
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
[2025-03-03 11:11] LABS: Cholesterol 253 mg/dL (<=200); HDL Cholesterol 34 mg/dL (40-60); Triglycerides 211 mg/dL (<=150); VLDL CHOLESTEROL 42.2 mg/dL
== END 2025-03-03 10:18 | disposition home or self-care (01) ==
PROVIDERS: PCP Nurse Practitioner Family; Visit Provider Nurse Practitioner Family
DX: E78.5 Hyperlipidemia, unspecified (principal); E11.9 Type 2 diabetes mellitus without complications
CPT/HCPCS: 36415; 80061; 83036